=== PATIENT | male | born 1945 | race Caucasian/White ===

== ENCOUNTER → 2017-03-14 | Outpatient (CLI) | payer OTHER ==
[2014-10-09 19:47] VITALS: BP 118/73
--- NOTE | 2017-03-14 15:01 | RAD ---
Examination: Lumbar spine, five views History: Back pain 4 days Findings: There is no significant or acute abnormality identified involving vertebral bodies, disc sp aces or sacroiliac joints. Alignment of vertebrae is anatomic. No bone destruction or fracture is see n. Arteriosclerotic calcification involves the abdominal aorta. There are surgical clips in the right upper abdomen. Impression: No acute/significant lumbar spine abnormality identified. Reported By:
== END ==
LOC: RAD 11:00
PROVIDERS: ATTEND Specialist
DX: M54.5 Low back pain (principal)
CPT/HCPCS: 72110

== ENCOUNTER 2017-11-24 10:00 | Observation (INO) ==
[2017-11-24] MEDS: NS 1000 ML 1,000 ML IV SCH ×2 (10:19→19:00)
[2017-11-24 10:22] LABS: BASOPHILS % (AUTO) 0.3 % (0.2-1.0); EOSINOPHILS # (AUTO) 0.2 x10^3/uL (0.0-0.2); EOSINOPHILS % (AUTO) 3.1 % (0.9-2.9); HEMATOCRIT 45.7 % (42.0-54.0); HEMOGLOBIN 15.9 g/dL (13.5-18.0); LYMPHOCYTES # (AUTO) 1.7 X10^3/uL (1.3-2.9); LYMPHOCYTES % (AUTO) 30.4 % (21.0-51.0); MEAN CORPUSCULAR HEMOGLOBIN 32.5 pg (27.0-34.0); MEAN CORPUSCULAR HGB CONC 34.9 g/dL (33.0-35.0); MEAN CORPUSCULAR VOLUME 93.2 fL (80.0-100.0); MEAN PLATELET VOLUME 7.5 fL (7.4-11.0); MONOCYTES # (AUTO) 0.5 x10^3/uL (0.3-0.8); MONOCYTES % (AUTO) 8.2 % (0.0-13.0); NEUTROPHILS # (AUTO) 3.2 x10^3/uL (2.2-4.8); PLATELET COUNT 219 X10^3/uL (150.0-450.0); WHITE BLOOD COUNT 5.5 X10^3/uL (3.6-10.0)
[2017-11-24 10:35] LABS: ALANINE AMINOTRANSFERASE 45 Units/L (12-78); ALBUMIN 3.7 g/dL (3.4-5.0); ALKALINE PHOSPHATASE 43 Units/L (46-116); ASPARTATE AMINO TRANSFERASE 28 Units/L (15-37); BLOOD UREA NITROGEN 16 mg/dL (7-18); CALCIUM 8.9 mg/dL (8.5-10.1); CARBON DIOXIDE 27.6 mmol/L (21-32); CHLORIDE 99 mmol/L (98-107); COR NA(FOR HYPERGLY) 137 mmol/L (136-145); CREATININE 1.22 mg/dL (0.70-1.30); SODIUM 134 mmol/L (136-145); eGFR NON BLACK RACES > 60 (>60)
[2017-11-24 11:53] LABS: CREATINE KINASE 51 Units/L (39-308); CREATINE KINASE MB < 1.0 ng/mL (0-4.0); TROPONIN I < 0.02 ng/mL (0-1.5)
[2017-11-24] MEDS ORDERED: NS 1000 ML 1,000 ML IV SCH (12:00)
--- NOTE | 2017-11-24 12:11 | DR.GENAD ---
HPI Time Seen Time Seen by Provider: 11/24/17 10:57 PCP Primary Care Physician: joao Complaint/Symptoms Chief Complaint Doctors Comments: Patient presents with a one week history of nausea and vomiting and chest pain past 2-3 days. He reports being diaphoretic for two days worse today. He gets his health care from the . He denies a cardiac history Chief Complaint:: pt stated he has been nauseated and vomiting for the past 4 to 5 days. this morning he was headed to congregation and got diaphoritic and pale. He reports that is October he had chest pain but did not get it evaluated. He admits to a severe headache. Source History Provided: Patient Mode of Arrival Mode of Arrival: Ambulatory Timing Onset of Chief Complaint: 11/20/17 PMH PMH Past Medical History: Yes Past Medical History: Diabetes, Dyslipidemia, GERD, Hypertension and NC Past Surgical History: Yes Surgical History: Angioplasty/Stents, Cholecystectomy and Ortho Surgery Family History History of Family Medical Conditions: Yes Family Medical History: Diabetes Mellitus Social History Does patient currently use any type of tobacco product: No Have you used tobacco products in the last 12 months: No Type of Tobacco Use: None Does any household member use tobacco: No Alcohol Use: None Do you use any recreational Drugs:: No Lives With: Family Lives Where: Home infectious screening In the last 2 months have you had wt loss of >10#?: YES Have you had fever, night sweats or hemotysis?: No Have you traveled outside the country in the last 6 months?: No Isolation: Standard PE Vital Signs Vitals: Temperature 98.3 F Pulse Rate [Left Brachial] 67 Pulse Rate [Right Radial] 78 Pulse Rate 81 Respiratory Rate 20 Blood Pressure [Left Arm] 148/81 Blood Pressure [Right Arm] 134/75 Blood Pressure 119/77 O2 Sat by Pulse Oximetry 96 General Limitations: No Limitations; negative Altered Mental Status General Appearance: Alert, In No Apparent Distress and Anxious Head Head Exam: Normal Inspection, Atraumatic and Normocephalic Eyes Eye exam: PERRL and EOMI; negative Scleral Icterus, Conjunctival Injection, Miosis and Mydrasis ENT ENT Exam: Normal Exam, Normal Oropharynx, Normal External Ear Exam, Mucous Membranes Moist and TM's Normal Bilaterally External Ear Exam: Normal External Inspection and Auricular Hematoma TM/Canal Exam: Bilateral: Normal Nose Exam: Normal Nose Exam; negative Sinus Tenderness and Nasal Deviation Throat Exam: Normal Inspection Neck Neck Exam: Normal Inspection and Full ROM; negative Tenderness Chest Chest Inspection: Normal Inspection and Symmetric Chest Wall Rise Respiratory Respiratory Exam: Normal Lung Sounds Bilat, Prolonged Expiratory Phase and Respiratory Distress; negative Accessory Muscle Use and Chest Wall Tenderness Respiratory Exam: Bilateral: Clear to Auscultation Cardiovascular Cardiovascular Exam: Regular Rate and Normal Rhythm Abdominal Exam Abdominal Exam: Normal Inspection, Normal Bowel Sounds and Soft; negative Hyperactive Bowel Sounds, Hypoactive Bowel Sounds and Organomegaly Abdominal Tenderness: negative RUQ, LLQ and Diffuse Extremities Extremities Exam: Normal Inspection, Normal Capillary Refill and Calf Tenderness Back Back Exam: Normal Inspection Neurologic Neurological Exam: Alert, Oriented X3 and CN II-XII Intact Psychiatric Psychiatric Exam: Agitated and Flat Affect Skin Skin Exam: Warm, Dry, Normal Color and Diaphoresis MDM Differential Diagnosis Differential Diagnosis: Anxiety COURSE Treatment Treatment: Normal Saline Reevaluation 1st: Unchanged Consultation Called: 12:40 Consultation Comments: Dr. Bhatia agreed to admit for further evaluation ROR Labs Reviewed Laboratory Results Reviewed?: Yes Result Diagrams: 11/25/17 04:18 11/25/17 04:18 Laboratory: WBC 7.0 X10^3/uL (3.6-10.0) 11/25/17 04:18 RBC 4.55 X10^6/uL (4.7-6.0) L 11/25/17 04:18 Hgb 14.6 g/dL (13.5-18.0) 11/25/17 04:18 Hct 42.3 % (42.0-54.0) 11/25/17 04:18 MCV 93.0 fL (80.0-100.0) 11/25/17 04:18 MCH 32.1 pg (27.0-34.0) 11/25/17 04:18 MCHC 34.5 g/dL (33.0-35.0) 11/25/17 04:18 RDW 13.6 % (11.6-16.5) 11/25/17 04:18 Plt Count 208 X10^3/uL (150.0-450.0) 11/25/17 04:18 MPV 7.8 fL (7.4-11.0) 11/25/17 04:18 Neut % (Auto) 55.1 % (42.0-75.0) 11/25/17 04:18 Lymph % (Auto) 28.0 % (21.0-51.0) 11/25/17 04:18 [place] % (Auto) 12.4 % (0.0-13.0) 11/25/17 04:18 Eos % (Auto) 3.9 % (0.9-2.9) H 11/25/17 04:18 Baso % (Auto) 0.6 % (0.2-1.0) 11/25/17 04:18 Neut # (Auto) 3.8 x10^3/uL (2.2-4.8) 11/25/17 04:18 Lymph # (Auto) 2.0 X10^3/uL (1.3-2.9) 11/25/17 04:18 [place] # (Auto) 0.9 x10^3/uL (0.3-0.8) H 11/25/17 04:18 Eos # (Auto) 0.3 x10^3/uL (0.0-0.2) H 11/25/17 04:18 Baso # (Auto) 0.0 X10^3/uL (0.0-0.1) 11/25/17 04:18 Absolute Nucleated RBC 0.0 /100WBC 11/25/17 04:18 Sodium 138 mmol/L (136-145) 11/25/17 04:18 Corrected Sodium 141 mmol/L (136-145) 11/25/17 04:18 Potassium 4.1 mmol/L (3.5-5.1) 11/25/17 04:18 Chloride 104 mmol/L (98-107) 11/25/17 04:18 Carbon Dioxide 27.5 mmol/L (21-32) 11/25/17 04:18 BUN 13 mg/dL (7-18) 11/25/17 04:18 Creatinine 0.99 mg/dL (0.70-1.30) 11/25/17 04:18 Est GFR (MDRD) Af Amer > 60 (>60) 11/25/17 04:18 Est GFR (MDRD) Non-Af > 60 (>60) 11/25/17 04:18 Glucose 206 mg/dL (65-99) H 11/25/17 04:18 POC Glucose (mg/dL) 134 mg/dL (65-99) H 11/25/17 12:04 Calcium 8.2 mg/dL (8.5-10.1) L 11/25/17 04:18 Corrected Calcium 8.8 mg/dL (8.5-10.1) 11/25/17 04:18 Total Bilirubin 0.40 mg/dL (0.2-1.0) 11/25/17 04:18 AST 27 Units/L (15-37) 11/25/17 04:18 ALT 38 Units/L (12-78) 11/25/17 04:18 Alkaline Phosphatase 37 Units/L (46-116) L 11/25/17 04:18 Creatine Kinase 54 Units/L (39-308) 11/24/17 23:13 CK-MB (CK-2) < 1.0 ng/mL (0-4.0) 11/24/17 23:13 CK/CKMB % Calc 1.9 % (<4) 11/24/17 23:13 Troponin I < 0.02 ng/mL (0-1.5) 11/24/17 23:13 C-Reactive Protein 4.80 mg/L (0-3.0) H 11/24/17 10:12 Total Protein 6.2 g/dL (6.4-8.2) L 11/25/17 04:18 Albumin 3.2 g/dL (3.4-5.0) L 11/25/17 04:18 Globulin 3.0 g/dL (2.5-4.5) 11/25/17 04:18 Albumin/Globulin Ratio 1.1 Ratio (1.1-2.1) 11/25/17 04:18 Specimen Type Clean catch urine 11/24/17 14:14 Urine Color Yellow (YELLOW) 11/24/17 14:14 Urine Appearance Slightly hazy (CLEAR) 11/24/17 14:14 Urine pH 5.0 (5.0 - 8.0) 11/24/17 14:14 Ur Specific [place] 1.020 (1.000-1.030) 11/24/17 14:14 Urine Protein 1+ (NEGATIVE) 11/24/17 14:14 Urine Glucose (UA) Negative (NEGATIVE) 11/24/17 14:14 Urine Ketones 1+ (NEGATIVE) 11/24/17 14:14 Urine Occult Blood 2+ (NEGATIVE) 11/24/17 14:14 Urine Nitrite Negative (NEGATIVE) 11/24/17 14:14 Urine Bilirubin Negative (NEGATIVE) 11/24/17 14:14 Urine Urobilinogen 1+ (NORMAL) 11/24/17 14:14 Ur Leukocyte Esterase 1+ (NEGATIVE) 11/24/17 14:14 Urine RBC 5-10 /HPF (NONE SEEN) 11/24/17 14:14 Urine WBC 0-2 /HPF (NONE SEEN) 11/24/17 14:14 Ur Squamous Epith Cells Rare /HPF (NEGATIVE) 11/24/17 14:14 Urine Bacteria Trace /HPF (NEGATIVE) 11/24/17 14:14 Urine Mucus Few /HPF (NEGATIVE) 11/24/17 14:14 Ur Culture Indicated? No/not indicated 11/24/17 14:14 XRAY XRAY Interpreted by: Radiologist XRAY Findings: Chest: No underllying abnormality
--- NOTE | 2017-11-24 12:26 | RAD ---
Indication: Chest pain Exam: PA and lateral Comparison: 08/30/2013 Findings: The heart is normal. The pulmonary vessels are normal. No consolidation or effusion is seen . There is overlying EKG lead artifact. Impression: Overlying EKG lead artifact otherwise, stable chest with no acute abnormality seen. Reported By:
[2017-11-24] MEDS ORDERED: NITROGLYCERIN SL PRN (13:52)
[2017-11-24] MEDS ORDERED: NITROSTAT SL PRN (14:18)
[2017-11-24 14:31] LABS: BILIRUBIN,URINE NEGATIVE (NEGATIVE); BLOOD/HEMOGLOBIN,URINE 2+ (NEGATIVE); GLUCOSE, URINE NEGATIVE (NEGATIVE); KETONES,URINE 1+ (NEGATIVE); LEUKOCYTE ESTERASE ,URINE 1+ (NEGATIVE); NITRITES,URINE NEGATIVE (NEGATIVE); PROTEIN,URINE 1+ (NEGATIVE); UROBILINOGEN,URINE 1+ (NORMAL)
[2017-11-24 14:34] LABS: APPEARANCE,URINE SLIGHTLY HAZY (CLEAR); COLOR,URINE YELLOW (YELLOW)
[2017-11-24 14:40] LABS: BACTERIA,URINE TRACE /HPF (NEGATIVE); MUCUS,URINE FEW /HPF (NEGATIVE); SQUAMOUS EPITHELIAL CELL,UR RARE /HPF (NEGATIVE)
[2017-11-24 15:10] VITALS: BMI 32.3
[2017-11-24 18:02] LABS: CREATINE KINASE 52 Units/L (39-308); CREATINE KINASE MB < 1.0 ng/mL (0-4.0); TROPONIN I < 0.02 ng/mL (0-1.5)
[2017-11-24 18:03] LABS: CKMB % 1.9 % (<4)
[2017-11-24] MEDS: TYLENOL 325 MG TAB PO PRN (19:20)
[2017-11-24] MEDS ORDERED: GLUCOPHAGE ONE (20:36)
[2017-11-24] MEDS: GLUCOPHAGE PO SCH (20:48)
[2017-11-24] MEDS ORDERED: COREG TAB 6.25 MG PO SCH (21:00)
[2017-11-24] MEDS ORDERED: ZOCOR TAB 40 MG PO SCH (21:00)
[2017-11-24 23:55] LABS: CKMB % 1.9 % (<4); CREATINE KINASE 54 Units/L (39-308); CREATINE KINASE MB < 1.0 ng/mL (0-4.0); TROPONIN I < 0.02 ng/mL (0-1.5)
[2017-11-25] MEDS: NS 1000 ML 1,000 ML IV SCH (04:23)
[2017-11-25 05:24] LABS: BASOPHILS % (AUTO) 0.6 % (0.2-1.0); EOSINOPHILS # (AUTO) 0.3 x10^3/uL (0.0-0.2); EOSINOPHILS % (AUTO) 3.9 % (0.9-2.9); HEMATOCRIT 42.3 % (42.0-54.0); HEMOGLOBIN 14.6 g/dL (13.5-18.0); MEAN CORPUSCULAR HEMOGLOBIN 32.1 pg (27.0-34.0); MEAN CORPUSCULAR HGB CONC 34.5 g/dL (33.0-35.0); MEAN PLATELET VOLUME 7.8 fL (7.4-11.0); MONOCYTES # (AUTO) 0.9 x10^3/uL (0.3-0.8); MONOCYTES % (AUTO) 12.4 % (0.0-13.0); NEUTROPHILS # (AUTO) 3.8 x10^3/uL (2.2-4.8); NEUTROPHILS % (AUTO) 55.1 % (42.0-75.0); PLATELET COUNT 208 X10^3/uL (150.0-450.0); RED BLOOD COUNT 4.55 X10^6/uL (4.7-6.0); RED CELL DISTRIBUTION WIDTH 13.6 % (11.6-16.5)
[2017-11-25 05:48] LABS: ALANINE AMINOTRANSFERASE 38 Units/L (12-78); ALBUMIN 3.2 g/dL (3.4-5.0); ALKALINE PHOSPHATASE 37 Units/L (46-116); ASPARTATE AMINO TRANSFERASE 27 Units/L (15-37); BLOOD UREA NITROGEN 13 mg/dL (7-18); CALCIUM 8.2 mg/dL (8.5-10.1); CARBON DIOXIDE 27.5 mmol/L (21-32); CHLORIDE 104 mmol/L (98-107); COR CA(FOR HYPOALB) 8.8 mg/dL (8.5-10.1); COR NA(FOR HYPERGLY) 141 mmol/L (136-145); CREATININE 0.99 mg/dL (0.70-1.30); SODIUM 138 mmol/L (136-145); TOTAL PROTEIN 6.2 g/dL (6.4-8.2); eGFR NON BLACK RACES > 60 (>60)
[2017-11-25] MEDS ORDERED: LOSARTAN POTASSIUM 25 MG PO SCH (09:00)
[2017-11-25] MEDS ORDERED: PATIENT'S HOME MEDICATION (Clopidogrel Bisulfate [Plavix] 75 MG) PO SCH (09:00)
[2017-11-25] MEDS ORDERED: PROTONIX INJ 40 MG VIAL IVP SCH (09:00)
[2017-11-25] MEDS ORDERED: PANTOPRAZOLE SODIUM 20 MG PO SCH (09:00)
[2017-11-25] MEDS ORDERED: COZAAR PO SCH (09:00)
[2017-11-25] MEDS ORDERED: PLAVIX PO SCH (09:00)
[2017-11-25] MEDS ORDERED: GLUCOPHAGE ONE (09:19)
[2017-11-25] MEDS: GLUCOPHAGE PO SCH (09:25)
[2017-11-25 11:34] VITALS: BP 148/81
[2017-11-25] MEDS: TYLENOL 325 MG TAB PO PRN (15:20)
--- NOTE | 2017-11-25 16:26 | DR.H&P ---
H&P - History & Physical for Day of: H&P Date: 11/24/17 - Chief Complaint Chief Complaint: CHEST PAIN, SOB - History of Present Illness History of Present Illness: 72 [facility] ER ADMISSION WITH CO CHEST PAIN WITH SOB AND EPISODES ACCOMPANIED BY "SWEATING" PT HAS PMH OF DM, CAD, HTN, OA. PT LAST HEART CATH 3 YEARS AGO. PT CO INCREASED HILTON AND MULTIPLE EPISODES OF CHEST PAIN ON AND OFF OVER LAST 2 WEEKS. PT HAD CE IN ER, ADMITTED TO R/[facility] - Past Medical History Past Medical History: ID, Hypertension, Dyslipidemia, Diabetes, GERD - Past Surgical History Surgical History: Angioplasty/Stents, Cholecystectomy, Ortho Surgery ([facility]) - Family History Family Medical History: Diabetes Mellitus - Social History Does patient currently use any type of tobacco product: No Have you used tobacco products in the last 12 months: No Type of Tobacco Use: None Does any household member use tobacco: No Alcohol Use: None Drug Use: None - Medications Home Medications: codeine Allergy (Verified 11/24/17 10:01) CONTINUE taking the following medications duloxetine 60 mg PO HS 11/24/17 [History] gabapentin 1 cap PO TID 11/24/17 [History] losartan 1 tab PO DAILY 11/24/17 [History] metformin 1,000 mg PO BID 11/24/17 [History] methocarbamol 1 tab PO BID 11/24/17 [History] pantoprazole 20 mg PO QDAY 11/24/17 [History] simvastatin 40 mg PO QHS 11/24/17 [History] tamsulosin 0.4 mg PO QDAY 11/24/17 [History] - Review of Systems Constitutional: Weakness Eyes: No Symptoms Reported ENT: No Symptoms Reported Respiratory: Shortness of Breath, SOB with Excertion Cardiovascular: Chest Pain Gastrointestinal: No Symptoms Reported Genitourinary: No Symptoms Reported Musculoskeletal: Back Pain Skin: No Symptoms Reported Neurological: No Symptoms Reported - Physical Exam Vital Signs: Temperature 98.3 F Pulse Rate [Left Brachial] 67 Pulse Rate [Right Radial] 78 Pulse Rate 81 Respiratory Rate 20 Blood Pressure [Left Arm] 148/81 Blood Pressure [Right Arm] 134/75 Blood Pressure 119/77 O2 Sat by Pulse Oximetry 96 Oriented: Normal Eyes: Normal Ear: Normal Nose: Normal Throat: Normal Respiratory: RLL Diminished, LLL Diminished Cardiovascular: Normal, Edema. negative: Murmur : Normal Auscultation: Bowel Sounds: Normal Palpation: Normal Tenderness: Normal Musculoskeletal: Left, Leg, Back:Lumbar, Deformity, Instability Psychiatric: Anxiety Affect: Anxious Speech Pattern: Clear, Appropriate - Assessment/Plan (1) Chest pain Status: Acute Plan: ADMIT. SERIAL CE AND EKGS. CXR ON ADMISSION, VERIFY HOME MEDS, BP AND LIPID CONTROL. SSI, BLOOD SUGAR MONITORING, NPO FOR POSSIBLE TRANSFER FOR HEART CATH, ASPIRIN THERAPY, SUPPLEMENTAL O2 (2) Diabetes mellitus type 2 Status: Chronic (3) Dyslipidemia Status: Chronic (4) Essential hypertension Status: Chronic (5) CAD (coronary artery disease) Status: Chronic - Allergies Allergies/Adverse Reactions: Allergies Allergy/AdvReac Type Severity Reaction Status Date / Time codeine Allergy Verified 11/24/17 10:01
--- NOTE | 2017-12-15 17:35 | PCM.DCPLAN ---
Discharge Summary - Admission Date Date of Admission: 11/24/17 - Discharge Date Discharge Date: 11/25/17 - Admission Diagnoses (1) Chest pain Status: Acute (2) CAD (coronary artery disease) Status: Chronic (3) Diabetes mellitus type 2 Status: Chronic (4) Dyslipidemia Status: Chronic (5) Essential hypertension Status: Chronic - Discharge Diagnoses Discharge Diagnosis: SAME ADMISSION DIAGNOSIS - Discharge Medications Discharge Medications: Home Medication List duloxetine 60 mg PO HS 11/24/17 [History] gabapentin 1 cap PO TID 11/24/17 [History] losartan 1 tab PO DAILY 11/24/17 [History] metformin 1,000 mg PO BID 11/24/17 [History] methocarbamol 1 tab PO BID 11/24/17 [History] pantoprazole 20 mg PO QDAY 11/24/17 [History] simvastatin 40 mg PO QHS 11/24/17 [History] tamsulosin 0.4 mg PO QDAY 11/24/17 [History] Prescriptions: - Hospital Course Vital Signs: Temperature 98.3 F Pulse Rate [Left Brachial] 67 Pulse Rate [Right Radial] 78 Pulse Rate 81 Respiratory Rate 20 Blood Pressure [Left Arm] 148/81 Blood Pressure [Right Arm] 134/75 Blood Pressure 119/77 O2 Sat by Pulse Oximetry 96 Latest Lab Results: Laboratory Last Values WBC 7.0 X10^3/uL (3.6-10.0) 11/25/17 04:18 RBC 4.55 X10^6/uL (4.7-6.0) L 11/25/17 04:18 Hgb 14.6 g/dL (13.5-18.0) 11/25/17 04:18 Hct 42.3 % (42.0-54.0) 11/25/17 04:18 MCV 93.0 fL (80.0-100.0) 11/25/17 04:18 MCH 32.1 pg (27.0-34.0) 11/25/17 04:18 MCHC 34.5 g/dL (33.0-35.0) 11/25/17 04:18 RDW 13.6 % (11.6-16.5) 11/25/17 04:18 Plt Count 208 X10^3/uL (150.0-450.0) 11/25/17 04:18 MPV 7.8 fL (7.4-11.0) 11/25/17 04:18 Neut % (Auto) 55.1 % (42.0-75.0) 11/25/17 04:18 Lymph % (Auto) 28.0 % (21.0-51.0) 11/25/17 04:18 [place] % (Auto) 12.4 % (0.0-13.0) 11/25/17 04:18 Eos % (Auto) 3.9 % (0.9-2.9) H 11/25/17 04:18 Baso % (Auto) 0.6 % (0.2-1.0) 11/25/17 04:18 Neut # (Auto) 3.8 x10^3/uL (2.2-4.8) 11/25/17 04:18 Lymph # (Auto) 2.0 X10^3/uL (1.3-2.9) 11/25/17 04:18 [place] # (Auto) 0.9 x10^3/uL (0.3-0.8) H 11/25/17 04:18 Eos # (Auto) 0.3 x10^3/uL (0.0-0.2) H 11/25/17 04:18 Baso # (Auto) 0.0 X10^3/uL (0.0-0.1) 11/25/17 04:18 Absolute Nucleated RBC 0.0 /100WBC 11/25/17 04:18 Sodium 138 mmol/L (136-145) 11/25/17 04:18 Corrected Sodium 141 mmol/L (136-145) 11/25/17 04:18 Potassium 4.1 mmol/L (3.5-5.1) 11/25/17 04:18 Chloride 104 mmol/L (98-107) 11/25/17 04:18 Carbon Dioxide 27.5 mmol/L (21-32) 11/25/17 04:18 BUN 13 mg/dL (7-18) 11/25/17 04:18 Creatinine 0.99 mg/dL (0.70-1.30) 11/25/17 04:18 Est GFR (MDRD) Af Amer > 60 (>60) 11/25/17 04:18 Est GFR (MDRD) Non-Af > 60 (>60) 11/25/17 04:18 Glucose 206 mg/dL (65-99) H 11/25/17 04:18 POC Glucose (mg/dL) 134 mg/dL (65-99) H 11/25/17 12:04 Calcium 8.2 mg/dL (8.5-10.1) L 11/25/17 04:18 Corrected Calcium 8.8 mg/dL (8.5-10.1) 11/25/17 04:18 Total Bilirubin 0.40 mg/dL (0.2-1.0) 11/25/17 04:18 AST 27 Units/L (15-37) 11/25/17 04:18 ALT 38 Units/L (12-78) 11/25/17 04:18 Alkaline Phosphatase 37 Units/L (46-116) L 11/25/17 04:18 Creatine Kinase 54 Units/L (39-308) 11/24/17 23:13 CK-MB (CK-2) < 1.0 ng/mL (0-4.0) 11/24/17 23:13 CK/CKMB % Calc 1.9 % (<4) 11/24/17 23:13 Troponin I < 0.02 ng/mL (0-1.5) 11/24/17 23:13 C-Reactive Protein 4.80 mg/L (0-3.0) H 11/24/17 10:12 Total Protein 6.2 g/dL (6.4-8.2) L 11/25/17 04:18 Albumin 3.2 g/dL (3.4-5.0) L 11/25/17 04:18 Globulin 3.0 g/dL (2.5-4.5) 11/25/17 04:18 Albumin/Globulin Ratio 1.1 Ratio (1.1-2.1) 11/25/17 04:18 Specimen Type Clean catch urine 11/24/17 14:14 Urine Color Yellow (YELLOW) 11/24/17 14:14 Urine Appearance Slightly hazy (CLEAR) 11/24/17 14:14 Urine pH 5.0 (5.0 - 8.0) 11/24/17 14:14 Ur Specific [place] 1.020 (1.000-1.030) 11/24/17 14:14 Urine Protein 1+ (NEGATIVE) 11/24/17 14:14 Urine Glucose (UA) Negative (NEGATIVE) 11/24/17 14:14 Urine Ketones 1+ (NEGATIVE) 11/24/17 14:14 Urine Occult Blood 2+ (NEGATIVE) 11/24/17 14:14 Urine Nitrite Negative (NEGATIVE) 11/24/17 14:14 Urine Bilirubin Negative (NEGATIVE) 11/24/17 14:14 Urine Urobilinogen 1+ (NORMAL) 11/24/17 14:14 Ur Leukocyte Esterase 1+ (NEGATIVE) 11/24/17 14:14 Urine RBC 5-10 /HPF (NONE SEEN) 11/24/17 14:14 Urine WBC 0-2 /HPF (NONE SEEN) 11/24/17 14:14 Ur Squamous Epith Cells Rare /HPF (NEGATIVE) 11/24/17 14:14 Urine Bacteria Trace /HPF (NEGATIVE) 11/24/17 14:14 Urine Mucus Few /HPF (NEGATIVE) 11/24/17 14:14 Ur Culture Indicated? No/not indicated 11/24/17 14:14 Hospital Course: 72 WM ER ADMISSION WITH CO CHEST PAIN WITH SOB AND EPISODES ACCOMPANIED BY "SWEATING" PT HAS PMH OF DM, CAD, HTN, OA. PT LAST HEART CATH 3 YEARS AGO. PT CO INCREASED HILTON AND MULTIPLE EPISODES OF CHEST PAIN ON AND OFF OVER LAST 2 WEEKS. PT HAD CE IN ER, ADMITTED TO R/O AMI. CARDIAC ENZYMES AND EKGS WERE MONITORED. PATIENT WAS TRANSFERRED TO [facility] FOR FURTHER CARE. - Discharge Plan Disposition: XF [facility] Condition: Stable - Follow ups/Referrals Follow ups/Referrals: [facility] [Other] (PT TRANSFERRED TO [facility] IN [place], [place]) - Instructions
== END 2017-11-25 15:45 | disposition short-term general hospital (02) ==
LOC: ER 10:00 → MED/SURG 10:00
PROVIDERS: ADMIT Internal Medicine; ATTEND Internal Medicine
DX: K21.9 Gastro-esophageal reflux disease without esophagitis; R06.02 Shortness of breath; R79.82 Elevated C-reactive protein (CRP); Z89.612 Acquired absence of left leg above knee; E78.2 Mixed hyperlipidemia; I25.10 Atherosclerotic heart disease of native coronary artery without angina pectoris; I10 Essential (primary) hypertension; R07.89 Other chest pain; R11.2 Nausea with vomiting, unspecified; E11.65 Type 2 diabetes mellitus with hyperglycemia
CPT/HCPCS: 36415; 71020; 71046; 80053; 81001; 82550; 82553; 84484; 85025; 86140; 93005; 93010; 96365; 96367; 99218; 99283; 99284; A4222; C9113; G0378; J3490; J7030